=== PATIENT | female | born 1990 | race Caucasian/White ===

== ENCOUNTER → 2016-04-25 12:18 | Emergency (ER) | payer SELFPAY ==
[~2016-04-25 12:18] MED LIST: PPD test dose* 5 TU/0.1 ML TEST (*USE PPD ORDER SET*) ONE
== END | disposition home or self-care (01) ==
LOC: OHCORT 12:18
DX: Z02.1 Encounter for pre-employment examination (principal)

== ENCOUNTER 2017-02-04 16:49 | Emergency (ER) | payer SELFPAY ==
[2017-02-04 18:34] VITALS: BP 116/76
--- NOTE | 2017-02-04 19:29 | ED ---
Throat Pain/Nasal Congestion - HPI Summary HPI Summary: 26 yr old female with two weeks of sinus pressure, post nasal drip, coughing, and now for four days progressive worse left ear pain. Pain is 6/10, non radiating, located in sinuses and left ear. Denies SOB. No other complaints. - History of Current Complaint Chief Complaint: UCRespiratory Time Seen by Provider: 02/04/17 19:17 - Allergies/Home Medications Allergies/Adverse Reactions: Allergies Allergy/AdvReac Type Severity Reaction Status Date / Time No Known Allergies Allergy Verified 02/04/17 18:24 Home Medications: Home Medications Pseudoephedrine TAB* [Sudafed TAB*] 30 mg PO Q6H PRN 02/04/17 [History Confirmed 02/04/17] PMH/Surg Hx/FS Hx/Imm Hx Infectious Disease History: No Infectious Disease History: Denies: Traveled Outside the [place] in Last 30 Days - Family History Known Family History: Positive: None - Social History Occupation: Employed Full-time Alcohol Use: Weekly Substance Use Type: Reports: Marijuana Smoking Status (MU): Never Smoked Tobacco Review of Systems Positive: Fever, Chills Positive: Sore Throat, Ear Ache, Nasal Discharge Positive: Cough All Other Systems Reviewed And Are Negative: Yes Physical Exam Triage Information Reviewed: Yes Vital Signs On Initial Exam: Initial Vitals Temp Pulse Resp BP Pulse Ox 98.9 F 103 20 116/76 100 02/04/17 18:25 02/04/17 18:25 02/04/17 18:25 02/04/17 18:25 02/04/17 18:25 Vital Signs Reviewed: Yes Appearance: Positive: Well-Appearing, No Pain Distress Skin: Positive: Warm, Skin Color Reflects Adequate Perfusion Eyes: Positive: EOMI ENT: Positive: Nasal congestion, Nasal drainage, TM bulging - l, TM red - l, Sinus tenderness - bilateral Neck: Positive: Supple Respiratory/Lung Sounds: Positive: Clear to Auscultation, Breath Sounds Present Cardiovascular: Positive: RRR. Negative: Murmur Abdomen Description: Positive: Nontender Musculoskeletal: Positive: Strength/ROM Intact Neurological: Positive: Sensory/Motor Intact, Alert, Oriented to Person Place, Time, CN Intact II-III Psychiatric: Positive: Normal - Wayne Coma Scale Best Eye Response: 4 - Spontaneous Best Motor Response: 6 - Obeys Commands Best Verbal Response: 5 - Oriented Diagnostics - Vital Signs Vital Signs Temp Pulse Resp BP Pulse Ox 02/04/17 18:25 98.9 F 103 20 116/76 100 - Laboratory Lab Results: Lab Results 02/04/17 Range/Units 18:50 Influenza A (Rapid) Negative (Negative) Influenza B (Rapid) Negative (Negative) Lab Statement: Any lab studies that have been ordered have been reviewed, and results considered in the medical decision making process. EENT Course/Dx - Course Course Of Treatment: 26 with left OM and sinusitis. Plan augmenting and dc home. - Diagnoses Provider Diagnoses: Sinusitis, Otitis media Discharge - Discharge Plan Condition: Good Disposition: HOME Prescriptions: Amoxicillin/Clavulanate TAB* [Augmentin TAB 875*] 875 mg PO BID #20 tab Patient Education Materials: Sinusitis (ED), Otitis Media (ED) Forms: *Work Release Referrals: [facility] [Outside] Non Staff,Doctor [Primary Care Provider] -
== END 2017-02-04 19:38 | disposition home or self-care (01) ==
LOC: UCCORT 16:49
DX: J32.9 Chronic sinusitis, unspecified (principal); H66.92 Otitis media, unspecified, left ear; F12.90 Cannabis use, unspecified, uncomplicated
CPT/HCPCS: 87502; 99212; G0463

== ENCOUNTER 2018-06-25 17:39 | Emergency (ER) | payer SELFPAY ==
[2018-06-25 18:17] VITALS: BP 113/74
--- NOTE | 2018-06-25 19:05 | UC ---
General HPI - HPI Summary HPI Summary: Per ergonomist "Since Thursday woke up for work at 0730 and felt off. As day progressed she felt weaker and weaker, got very pale and felt nauseous with no vomitting, felt like she had to have a BM but couldn't. Had chills all day Thursday with no fever. Feels pressure in her abdomen. Had soup for dinner and induced vomitting to feel better. Tried to eat again later, but couldn't. Feels like her whole body is tender and she cannot support the weight of her body. BM have been normal. Woke up feeling better yesterday and then it all came back. Pt took nyquil to help with sleep but has not been able to sleep. " -here w/ her BF Hasmukh. she has baseline anxiety and he sx have made her even more anxious. -she feels that there is something really wrong. -she smokes MJ regulalrly and she smoked a couple of hours before coming here. -drinking lots of water -urine is frequent and pale -denies -LMP 06/07-06/12 + sexually active. use condom. doesnt think she is . not on OCP - History of Current Complaint Chief Complaint: UCGeneralIllness Stated Complaint: FATIGUE, TROUBLE SLEEPING Time Seen by Provider: 06/25/18 19:01 Hx Last Menstrual Period: 06/07 Pain Intensity: 0 - Allergy/Home Medications Allergies/Adverse Reactions: Allergies Allergy/AdvReac Type Severity Reaction Status Date / Time No Known Allergies Allergy Verified 06/25/18 18:17 Home Medications: Home Medications NK [No Home Medications Reported] 06/25/18 [History Confirmed 06/25/18] PMH/Surg Hx/FS Hx/Imm Hx Previously Healthy: Yes Psychological History: Anxiety - Surgical History Surgical History: None - Family History Known Family History: Positive: Hypertension - Social History Alcohol Use: Rare Substance Use Type: Marijuana Substance Use Comment - Amount & Last Used: today Smoking Status (MU): Never Smoked Tobacco Review of Systems All Other Systems Reviewed And Are Negative: Yes Constitutional: Positive: Chills, Fatigue Skin: Positive: Other - pale. Negative: Rash Eyes: Positive: Negative ENT: Positive: Negative Respiratory: Negative: Cough Cardiovascular: Positive: Negative. Negative: Chest Pain Gastrointestinal: Positive: Abdominal Pain, Vomiting, Nausea Genitourinary: Positive: Negative Motor: Positive: Weakness Neurovascular: Positive: Decreased Sensation Musculoskeletal: Positive: Arthralgia Neurological: Positive: Weakness, Numbness Psychological: Positive: Anxious Is Patient Immunocompromised?: No Physical Exam Triage Information Reviewed: Yes Completion Of Physical Exam Limited Due To: Altered Mental Status Appearance: Well-Nourished, Ill-Appearing - anxious, vague, pale Vital Signs: Initial Vital Signs Temp 98.7 F 06/25/18 18:08 Pulse 73 06/25/18 18:08 Resp 18 06/25/18 18:08 BP 113/74 06/25/18 18:08 Pulse Ox 100 06/25/18 18:08 Eye Exam: Normal ENT Exam: Normal ENT: Positive: Pharynx normal, TMs normal, Uvula midline Neck exam: Normal Neck: Positive: Supple, Nontender, No Lymphadenopathy Respiratory Exam: Normal Respiratory: Positive: Lungs clear, Normal breath sounds, No respiratory distress, No accessory muscle use. Negative: Crackles, Rhonchi, Stridor, Wheezing Cardiovascular Exam: Normal Cardiovascular: Positive: RRR, No Murmur Abdomen Description: Positive: Pulsatile Mass - visible pulsation mid abd. she reports this is new, she can see it too. palpable ~ size of a baseball. mid to left abdomen. Negative: Distended, Guarding Bowel Sounds: Positive: Present Musculoskeletal Exam: Normal Neurological Exam: Normal Psychological: Positive: Other: - anxious Skin Exam: Normal Course/Dx - Course Course Of Treatment: -recommend HCG, but recently urinated. urgently dc'd to get to ER. recommend she mentions there. common to check for preg in ER -pulsaitile mass that is new in light of weakness and vague sx must r/o AAA. although unlikely in her age group, it should be r/o. She understands that this is life threatening and a surgical emergency if ruptures. They both verbalize understanding and agree to go to ER. They refuse ambulance, they understand risk of private transportation w/o box spinner/emergent support. understand to go directly to the ER. -she does ot ahev a PCP and I have stressed improartnce of fu w/ PCP. phone #s given. -they verbalize understanding. - Differential Dx - Multi-Symptom Differential Diagnoses: Other - viral syndrome, anxiety, AAA - Diagnoses Provider Diagnosis: Pulsatile abdominal mass Discharge - Sign-Out/Discharge Documenting (check all that apply): Patient Departure All imaging exams completed and their final reports reviewed: No Studies - Discharge Plan Condition: Fair Disposition: HOME-RECOMMEND TO ED Referrals: No Primary Care Phys,NOPCP [Primary Care Provider] - [facility] [Provider Group] Additional Instructions: we discussed, go directly to the closets ER at [facility]. Do not stop anywhere prior. You need to be evaluated for a possible abdominal aortic aneurysm that could be life threatening - Billing Disposition and Condition Condition: FAIR Disposition: Home-Recommend to ED
== END 2018-06-25 19:27 | disposition home health service (06) ==
LOC: UCCORT 17:39
DX: R19.09 Other intra-abdominal and pelvic swelling, mass and lump (principal); F41.9 Anxiety disorder, unspecified
CPT/HCPCS: 99212; G0463